=== PATIENT | male | born 1945 | race Caucasian/White ===

== ENCOUNTER → 2017-09-06 16:15 | Outpatient (CLI) | payer MEDICARE, BC, SELFPAY ==
--- NOTE | 2017-09-06 16:30 | XR_ITS ---
XR chest 2V HISTORY: ITS.REASON: CHEST PAIN AT REST ORDERING PHYSICIAN: Horacio Ferro MD PATIENT AGE: 72 years COMPARISON: 12/30/2014 FINDINGS: The cardiomediastinal silhouette and pulmonary vascularity are within normal limits. Surgical clips are present in the right apex. The lungs are clear of acute infiltrate. No lobar consolidation or collapse. Calcified granuloma is present in the left upper lobe. Degenerative changes thoracic spine IMPRESSION: Postsurgical changes right upper lobe, no acute finding
[2017-09-06 17:46] LABS: Creatine Kinase 439 U/L (39-308); Creatine Kinase MB 5.9 ng/ml (0.0-3.6); Troponin I < 0.02 ng/ml (0.00-0.06)
[2017-09-06 19:39] LABS: CKMB Relative Index 1.3 U/L (0-4.0)
== END ==
PROVIDERS: Visit Provider Family Medicine
DX: R07.9 Chest pain, unspecified (principal)
CPT/HCPCS: 36415; 71046; 82550; 82553; 84484

== ENCOUNTER → 2018-06-13 10:34 | Outpatient (CLI) | payer MEDICARE, BC, SELFPAY ==
[2018-06-13 11:15] LABS: Basophils % 0.4 % (0.1-2.0); Eosinophils # 0.3 K/mm3 (0.0-0.4); Eosinophils % 2.9 % (0.1-12.0); Hematocrit 24.9 % (42.0-52.0); Hemoglobin 8.1 g/dL (14.1-18.0); Lymphocytes # 1.9 K/mm3 (0.7-4.5); Lymphocytes % 19.2 % (10-50); Mean Corpuscular HGB Conc 32.7 g/dL (31.8-35.4); Mean Corpuscular Hemoglobin 31.8 pg (27.0-31.2); Mean Corpuscular Volume 97.5 fl (80-94); Mean Platelet Volume 7.5 fl (7.4-10.4); Monocytes # 0.5 K/mm3 (0.1-1.0); Monocytes % 4.9 % (1.7-9.3); Neutrophils # 7.1 K/mm3 (1.8-7.8); Neutrophils % 72.6 % (37.0-80.0); Platelet Count 416 K/mm3 (142-424); Red Blood Count 2.56 M/mm3 (4.60-6.20); Red Cell Distribution Width 15.4 % (11.5-17.5); White Blood Count 9.8 K/mm3 (4.8-10.8)
== END ==
PROVIDERS: Visit Provider Family Medicine
DX: D64.9 Anemia, unspecified (principal)
CPT/HCPCS: 36415; 85025

== ENCOUNTER 2018-06-14 08:49 | Outpatient (CLI) | payer MEDICARE, BC, SELFPAY ==
[2018-06-14] VITALS (18 sets, daily range): BP systolic 113–159; BP diastolic 46–71; PULSE 68–80; RESP 16–76; TEMP 36.1–36.6; O2SAT 10–100; BMI 31.8
[2018-06-14 09:40] LABS: Basophils % 0.4 % (0.1-2.0); Eosinophils # 0.3 K/mm3 (0.0-0.4); Eosinophils % 4.3 % (0.1-12.0); Lymphocytes # 1.4 K/mm3 (0.7-4.5); Lymphocytes % 23.2 % (10-50); Mean Corpuscular HGB Conc 32.9 g/dL (31.8-35.4); Mean Corpuscular Volume 97.3 fl (80-94); Mean Platelet Volume 7.3 fl (7.4-10.4); Monocytes # 0.3 K/mm3 (0.1-1.0); Monocytes % 4.9 % (1.7-9.3); Neutrophils # 4.1 K/mm3 (1.8-7.8); Neutrophils % 67.1 % (37.0-80.0); Platelet Count 383 K/mm3 (142-424); Red Blood Count 2.11 M/mm3 (4.60-6.20); Red Cell Distribution Width 15.5 % (11.5-17.5); White Blood Count 6.1 K/mm3 (4.8-10.8)
[2018-06-14 09:51] LABS: Hematocrit 20.5 % (42.0-52.0); Hemoglobin 6.8 g/dL (14.1-18.0)
[2018-06-14 17:37] LABS: Hematocrit 26.5 % (42.0-52.0)
[2018-06-14 17:40] LABS: Hemoglobin 9.1 g/dL (14.1-18.0)
== END 2018-06-14 17:25 | disposition home or self-care (01) ==
LOC: LAB 08:50 → INF 10:32
PROVIDERS: PCP Family Medicine; Visit Provider Nurse Practitioner Family
DX: K92.2 Gastrointestinal hemorrhage, unspecified (principal); D50.0 Iron deficiency anemia secondary to blood loss (chronic)
CPT/HCPCS: 36415; 36430; 85014; 85018; 85025; 86850; P9016

== ENCOUNTER 2018-06-20 09:55 | Outpatient (CLI) | payer MEDICARE, BC, SELFPAY ==
[2018-06-20 10:06] VITALS: BMI 30.9
[2018-06-20 11:19] LABS: Basophils % 0.5 % (0.1-2.0); Eosinophils # 0.2 K/mm3 (0.0-0.4); Eosinophils % 3.5 % (0.1-12.0); Hematocrit 31.9 % (42.0-52.0); Hemoglobin 10.5 g/dL (14.1-18.0); Lymphocytes # 1.7 K/mm3 (0.7-4.5); Lymphocytes % 24.7 % (10-50); Mean Corpuscular HGB Conc 32.9 g/dL (31.8-35.4); Mean Corpuscular Hemoglobin 30.6 pg (27.0-31.2); Mean Corpuscular Volume 93.1 fl (80-94); Mean Platelet Volume 7.1 fl (7.4-10.4); Monocytes # 0.4 K/mm3 (0.1-1.0); Monocytes % 5.7 % (1.7-9.3); Neutrophils # 4.4 K/mm3 (1.8-7.8); Neutrophils % 65.7 % (37.0-80.0); Platelet Count 458 K/mm3 (142-424); Red Blood Count 3.43 M/mm3 (4.60-6.20); Red Cell Distribution Width 14.2 % (11.5-17.5); White Blood Count 6.7 K/mm3 (4.8-10.8)
[2018-06-20 11:20] VITALS: BP 142/67; PULSE 59; RESP 18; O2SAT 99
[2018-06-20 11:45] VITALS: BP 138/74; PULSE 61; RESP 18
== END 2018-06-20 11:55 | disposition home or self-care (01) ==
LOC: INF 09:58
PROVIDERS: Family Medicine; Visit Provider Internal Medicine Gastroenterology
DX: D64.9 Anemia, unspecified (principal); D50.9 Iron deficiency anemia, unspecified; T45.4X5A Adverse effect of iron and its compounds, initial encounter
CPT/HCPCS: 85025; 96365; J1439

== ENCOUNTER 2018-06-27 09:50 | Outpatient (CLI) | payer MEDICARE, BC, SELFPAY ==
[2018-06-27 10:09] VITALS: BMI 30.9
[2018-06-27 11:00] VITALS: BP 117/65; PULSE 88; RESP 18; TEMP 36.6; O2SAT 96
[2018-06-27 11:13] LABS: Basophils % 0.8 % (0.1-2.0); Eosinophils # 0.2 K/mm3 (0.0-0.4); Eosinophils % 3.3 % (0.1-12.0); Hematocrit 34.5 % (42.0-52.0); Hemoglobin 11.4 g/dL (14.1-18.0); Lymphocytes # 1.4 K/mm3 (0.7-4.5); Lymphocytes % 24.3 % (10-50); Mean Corpuscular Hemoglobin 30.9 pg (27.0-31.2); Mean Corpuscular Volume 93.8 fl (80-94); Monocytes # 0.3 K/mm3 (0.1-1.0); Monocytes % 4.4 % (1.7-9.3); Neutrophils % 67.3 % (37.0-80.0); Platelet Count 398 K/mm3 (142-424); Red Blood Count 3.68 M/mm3 (4.60-6.20); Red Cell Distribution Width 15.3 % (11.5-17.5); White Blood Count 5.9 K/mm3 (4.8-10.8)
[2018-06-27 11:40] VITALS: BP 149/66; PULSE 66; RESP 18; TEMP 36.6; O2SAT 99
== END 2018-06-27 11:45 | disposition hospice, home (50) ==
LOC: INF 09:58
PROVIDERS: Family Medicine; Visit Provider Internal Medicine Gastroenterology
DX: D50.0 Iron deficiency anemia secondary to blood loss (chronic) (principal); K92.2 Gastrointestinal hemorrhage, unspecified
CPT/HCPCS: 85025; 96365; J1439

== ENCOUNTER 2024-07-01 08:48 | Outpatient (CLI) | payer MEDICARE, BC, SELFPAY ==
--- NOTE | 2024-07-01 08:52 | US_ITS ---
FINAL REPORT TECHNIQUE: Sonographic images of the abdomen were obtained in all four quadrants. CLINICAL HISTORY: ABNORMAL LIVER FUNCTIONS COMPARISON: None FINDINGS: LIVER: There is fatty infiltration of the liver present. The liver is mildly enlarged. No focal hepatic lesion or intrahepatic biliary dilatation. The portal vein has normal directional flow. GALLBLADDER: The gallbladder is surgically absent. The common duct measures 6 mm. This is within normal limits post cholecystectomy. PANCREAS: The portions of the pancreas visualized are unremarkable. RIGHT KIDNEY: 10.8 cm. There is an echogenic focus in the lower pole of the right kidney, that likely represents a nonobstructing stone. LEFT KIDNEY: 11.9 cm. No hydronephrosis, mass or stone. SPLEEN: 14.4 cm, consistent with splenomegaly. No focal splenic lesion. AORTA/IVC: No abdominal aortic aneurysm. Visualized IVC within normal limits. OTHER: No ascites. IMPRESSION: Hepatosplenomegaly is present, with fatty infiltration of the liver. Gallbladder is surgically absent. Echogenic focus in the lower pole of the right kidney, that likely represents a nonobstructing renal stone. Reviewed, Interpreted and Dictated by Molly Cancino MD Transcribed by Angela Perea Authenticated and . [facility]
--- OUTSIDE RECORDS SUMMARY | 2024-07-01 08:53 | XMS_ITS ---
Author Organization Unknown Vital Signs BpStanding BpSitting BpSupine Date Temperature HeartRate Weight Hei ght Spo2 Respiration Bmi HeadCircumference FieldCount TimeRecorded NeckCircumferen ce WaistCircumference Pulse 138/68 06/07 00:00 :00 98.0 74 223,0 5,11 98 31.1 7 06/07/2024 13:15:00 140/78 12/19 00:00 :00 98.6 72 214,0 5,11 94 29.8 4 7 06/07/2024 08:30:00 140/80 09/19 00:00 :00 98.6 211,0 5,11 29.4 3 5 06/07/2024 08:30:00 148/80 06/26 00:00 :00 98.6 205,0 5,11 28.5 9 5 06/07/2024 08:45:00
== END 2024-07-01 23:59 | disposition home or self-care (01) ==
PROVIDERS: PCP Family Medicine; Visit Provider Nurse Practitioner
DX: K76.89 Other specified diseases of liver (principal)
CPT/HCPCS: 76700

== ENCOUNTER 2024-07-23 15:10 | Emergency (ER) | payer MEDICARE, BC, SELFPAY ==
[2024-07-23] VITALS (9 sets, daily range): BP systolic 138–159; BP diastolic 62–75; PULSE 90–102; RESP 18–28; TEMP 36.8–38.6; O2SAT 90–98; BMI 32.6
--- NOTE | 2024-07-23 15:06 | ECG_ITS ---
APPROVED REPORT Exam: Resting ECG HR:101 bpm ECG Measurements Heart Rate 101 AXES RI 209 P 58 QRSd 168 QRS 64 QT 380 T -9 QTc 438 Conclusion SINUS TACHYCARDIA RIGHT BUNDLE BRANCH BLOCK [120+ ms QRS DURATION, UPRIGHT V1, 40+ ms S IN I/aVL/V4/V5/V6] ST DEPRESSION, CONSIDER SUBENDOCARDIAL INJURY [0.1+ mV ST DEPRESSION] ABNORMAL ECG Electronically signed by : ENRIQUETA HUDDLESTON, 07/23/2024 20:51:36
--- NOTE | 2024-07-23 15:22 | CT_ITS ---
PROCEDURE INFORMATION: Exam: CTA Chest With Contrast Exam date and time: 07/23/2024 4:03 PM Age: 79 years old Clinical indication: Sternal or substernal pain; Additional info: Severe cp TECHNIQUE: Imaging protocol: Computed tomographic angiography of the chest with contrast. Exam focused on the arteries. 3D rendering (Not supervised by radiologist): MIP and/or 3D reconstructed images were created by the technologist. Radiation optimization: All CT scans at this facility use at least one of these dose optimization techniques: automated exposure control; mA and/or kV adjustment per patient size (includes targeted exams where dose is matched to clinical indication); or iterative reconstruction. Contrast material: ISOVUE 370; Contrast volume: 80 ml; Contrast route: INTRAVENOUS (IV); COMPARISON: CT ANGIO CHEST 07/23/2024 4:03 PM FINDINGS: Pulmonary arteries: No definite pulmonary emboli, with the caveat that the segmental and subsegmental branches are partially obscured by motion and suboptimal contrast bolus. Aorta: Mild calcifications in the aorta without aneurysms. Lungs: Mild upper lobe dominant paraseptal emphysema. No consolidations. No lung masses. Mild dependent atelectasis. Pleural spaces: Unremarkable. No pneumothorax. No pleural effusion. Heart: Mild cardiomegaly. Coronary arteries: Moderate calcification in the LAD. Lymph nodes: Unremarkable. No enlarged lymph nodes. Diaphragm: Moderate hiatal hernia. Bones/joints: Moderate to severe degenerative changes of the spine without acute fracture or dislocation. Soft tissues: Unremarkable. IMPRESSION: 1. No definite pulmonary emboli, with the caveat that the segmental and subsegmental branches are partially obscured by motion and suboptimal contrast bolus. 2. No other acute findings.
--- NOTE | 2024-07-23 15:25 | HMH.EDCP ---
Discharge Plan Disposition Chief Complaint: Chest Pain Prescriptions Prescriptions: No Action potassium chloride [Klor-Con 10] 10 MEQ Tablet.Er 10 meq PO BID amlodipine 5 MG Tablet 5 mg PO DAILY alprazolam 0.5 MG Tablet 0.5 mg PO QIDP PRN (Reason: Anxiety) metoprolol tartrate 50 MG Tablet 50 mg PO BID cholecalciferol (vitamin D3) [Vitamin D3] 1,000 UNIT Capsule 2,000 unit PO DAILY hydrochlorothiazide 12.5 MG Tablet 12.5 mg PO DAILY vitamins A,C,O-fsyi-grvylg [PreserVision AREDS] 1 EACH Capsule 1 ea PO DAILY PRN (Reason: supplement) pantoprazole 40 mg tablet,delayed release (DR/EC) 40 mg PO DAILY Referrals Follow up/Referrals: Provider,Referral, MD [Primary Care Provider] - See instructions Activity Restrictions/Add. Instructions Additional Instructions/Restrictions: As discussed today you have chest pain that is concerning to me, your sugar is elevated, your potassium is a little bit low. 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 We did talk about it and you do not wish to pursue any of these and that is your right to make that decision. However if you change your mind and want to have any of these manage do not hesitate to return the emergency department at any time. Otherwise if you want to follow-up with your family doctor to keep an eye on things I would encourage you to do so soon as you are able. Clinical Impressions Clinical Impression: Unstable angina, Acute hypokalemia, Hyperglycemia, Transaminitis Print Language Print Language: Andorran Discharge ED Provider: Gerber Faye HPI General Chief Complaint: Chest Pain Stated Complaint: CP Time Seen by Provider: 07/23/24 15:14 Mode of Arrival: EMS Source of Information: Patient and EMS Description of Symptoms (Recalled from ER Triage Doc. by RN): pt started having CP today at home with one episode of nausea and vomiting, pt denies soa /dizziness, ems gave 324 mg ASA History of Present Illness HPI narrative: Patient is a 79-year-old male with past medical history of hypertension who presents emergency department for evaluation of chest pain and fever. Onset was acute, occurring since early this afternoon, substernal, paroxysmal. He has never had chest pain like this before has no significant already at history no stents. 1 episode of nonbloody nonbilious vomiting. No abdominal pain. He has chronic constipation which is at his baseline, increased urinary frequency chronically. No trauma. No cough or shortness of breath. No other acute complaints at this time. Related Data Home Medications ?Medication ?Instructions ?Recorded ?Confirmed alprazolam 0.5 mg tablet 0.5 mg PO QIDP PRN Anxiety 06/14/18 06/20/18 amlodipine 5 mg tablet 5 mg PO DAILY blood pressure 06/14/18 06/20/18 cholecalciferol (vitamin D3) 25 2,000 unit PO DAILY Supplement 06/14/18 06/20/18 mcg (1,000 unit) capsule (Vitamin D3) hydrochlorothiazide 12.5 mg tablet 12.5 mg PO DAILY blood 06/14/18 06/20/18 pressure/fluid metoprolol tartrate 50 mg tablet 50 mg PO BID blood pressure 06/14/18 06/20/18 potassium chloride 10 mEq 10 meq PO BID Supplement 06/14/18 06/20/18 tablet,extended release (Klor-Con) vitamins A,C,D-ozru-cuypjg 4,296 1 ea PO DAILY PRN supplement 06/14/18 06/20/18 mcg-226 mg-90 mg capsule (PreserVision AREDS) pantoprazole 40 mg tablet,delayed 40 mg PO DAILY 07/23/24 07/23/24 release Allergies Allergy/AdvReac Type Severity Reaction Status Date / Time No Known Allergies Allergy Verified 06/14/18 11:38 [facility] Disclaimer: The information contained in this section may have been updated after the patient was seen, as this information can be updated by other users. Social History Smoking Status: Never smoker alcohol intake: never current occupational status: other Travel in the last 8 weeks?: None caffeine: Yes ROS Obtained: Yes Systems reviewed as appropriate & no additional complaints except as documented Physical Exam General General appearance: alert and in no apparent distress Head Head exam: atraumatic and normocephalic Eye Eye exam: Present PERRL and EOMI ENT ENT exam: Present mucous membranes moist Neck Neck exam: Present normal inspection Chest Chest inspection: Present normal inspection and symmetric chest wall rise Respiratory Respiratory exam: Present normal lung sounds bilaterally; Absent respiratory distress Cardiovascular Cardiovascular exam: Present normal rhythm and tachycardia Abdominal Exam Abdominal exam: Present soft; Absent tenderness Extremities Exam Extremities exam: Present normal inspection Neurological Exam Neurological exam: Present alert and CN II-XII intact; Absent motor sensory deficit Psychiatric Psychiatric exam: Present normal affect Skin Skin exam: Present warm and dry HEART Score HEART Score HEART Score assessment performed?: Yes History (anamnesis): Moderately suspicious ECG: Non-specific disturbance Age: >65 years Risk factors: No known risk factors Troponin: </= normal limit HEART Score: 4 Critical Care Critical Care Time Critical Care Time: No Medical Decision Making Conrad Inquiry Pt receiving controlled substance: No Vital Signs Vital Signs: 07/23/24 15:16 07/23/24 15:25 07/23/24 15:30 Temperature 101.5 F H Temperature Source Oral Pulse Rate 102 H Pulse Rate [Left Radial] 102 H Respiratory Rate 20 28 H Blood Pressure 151/75 H Blood Pressure [Right Arm] 140/71 Blood Pressure Mean [Right Arm] 94 02 Sat by Pulse Oximetry 95 Oxygen Delivery Method Room Air 07/23/24 16:30 07/23/24 17:00 07/23/24 17:30 Temperature Temperature Source Pulse Rate 99 H 98 H 95 H Pulse Rate [Left Radial] Respiratory Rate 22 27 H 23 Blood Pressure 156/71 H 159/66 H 156/62 H Blood Pressure [Right Arm] Blood Pressure Mean [Right Arm] 02 Sat by Pulse Oximetry 95 90 L 92 L Oxygen Delivery Method 07/23/24 18:00 07/23/24 18:30 Temperature Temperature Source Pulse Rate 95 H 92 H Pulse Rate [Left Radial] Respiratory Rate 18 22 Blood Pressure 138/62 145/64 H Blood Pressure [Right Arm] Blood Pressure Mean [Right Arm] 02 Sat by Pulse Oximetry 93 L 92 L Oxygen Delivery Method Lab Data Labs: Lab Results 07/23/24 15:10: WBC 10.4, RBC 4.59 L, Hgb 14.5, Hct 42.1, MCV 91.7, MCH 31.6 H, MCHC 34.4, RDW 13.4, Plt Count 211, MPV 10.9 H, Neut % (Auto) 86.8 H, Lymph % (Auto) 5.6 L, [place] % (Auto) 6.4, Eos % (Auto) 0.4, Baso % (Auto) 0.3, Neut # (Auto) 9.0 H, Lymph # (Auto) 0.6 L, [place] # (Auto) 0.7, Eos # (Auto) 0.0, Baso # (Auto) 0.0, Sodium 137, Potassium 3.0 L, Chloride 103, Carbon Dioxide 25, Anion Gap 12.0, BUN 17, Creatinine 1.30 H, Estimated Creat Clear 61, Estimated GFR 53 L, Est GFR ( Amer) 64, Glucose 258 H, Lactate 3.0 H, Calcium 9.4, Total Bilirubin 1.8 H, AST 150 H, ALT 183 H, Alkaline Phosphatase 97, Troponin I 0.02, Total Protein 7.5, Albumin 4.6, Globulin 2.9, Albumin/Globulin Ratio 1.6, Lipase 374 H, SARS-CoV-2 (PCR) Not detected, Influenza A Untype (PCR) Not detected, Influenza Type B (PCR) Not detected 07/23/24 16:18: Urine Color Dark yellow, Urine Appearance Clear, Urine pH 6.5, Ur Specific [place] 1.010, Urine Protein 1+ A, Urine Glucose (UA) Negative, Urine Ketones Negative, Urine Blood Negative, Urine Nitrate Negative, Urine Bilirubin Negative, Urine Urobilinogen 0.2, Ur Leukocyte Esterase Negative, Urine RBC None, Urine WBC 3-5, Ur Squamous Epith Cells None, Urine Bacteria Trace, Urine Mucus Trace 07/23/24 15:10 07/23/24 15:10 Response Orders (Tests/Meds): ED MEDICATIONS Discontinued Medications Generic Name Dose Route Start Last Admin Trade Name Freq PRN Reason Stop Dose Admin Acetaminophen 1,000 mg 07/23/24 15:22 07/23/24 15:34 Acetaminophen 500mg Tab PO 07/23/24 15:23 1,000 mg ONCE ONE Administration Aspirin 324 mg 07/23/24 15:22 07/23/24 15:27 Aspirin 81mg Chewable Tablet PO 07/23/24 15:23 Not Given ONCE ONE Belladonna Alkaloids 60 ml 07/23/24 15:22 07/23/24 15:34 Belladonna Alkaloids 60 Ml Ml PO 07/23/24 15:23 60 ml ONCE ONE Administration Lactated Ringer's 1,000 mls @ 999 mls/hr 07/23/24 16:44 07/23/24 16:58 Lactated Ringer's 1000 Ml Bag IV 07/23/24 17:44 999 mls/hr .Q1H1M ONE Administration Iopamidol 80 ml 07/23/24 16:05 07/23/24 16:06 Iopamidol-370 (76%);100ml Bottle IV 07/23/24 16:06 80 ml ONCE ONE Administration Ondansetron HCl 4 mg 07/23/24 15:26 07/23/24 15:34 Ondansetron 4mg/2ml Vial IV 07/23/24 15:27 4 mg ONCE ONE Administration Potassium Chloride 40 meq 07/23/24 16:43 07/23/24 16:58 Potassium Chloride 20meq Tab PO 07/23/24 16:44 40 meq ONCE ONE Administration Sodium Chloride 10 ml 07/23/24 16:05 07/23/24 16:06 Sodium Chloride 0.9% 10ml Syr (Rad Only) IV 07/23/24 16:06 10 ml ONCE ONE Administration Sodium Chloride 50 ml 07/23/24 16:05 07/23/24 16:06 0.9 % Sodium Chloride 50 Ml Vial IV 07/23/24 16:06 50 ml ONCE ONE Administration ORDERS Category Date Time Status CT abdomen pelvis w con Stat Cat Scan 07/23/24 15:[address] angio chest - dissection Stat Cat Scan 07/23/24 15:22 Completed CBC w/Auto Diff [Complete Blood Count Auto Diff] Stat Lab 07/23/24 15:10 Completed CMP [Comprehensive Metabolic Panel] Stat Lab 07/23/24 15:10 Completed Lactic Acid Stat Lab 07/23/24 15:10 Completed Lipase Stat Lab 07/23/24 15:10 Completed Rapid PCR Covid and Flu A/B Stat Lab 07/23/24 15:10 Completed Trop I [Troponin I] Stat Lab 07/23/24 15:10 Completed Troponin I Q3H Lab 07/23/24 18:16 Received Troponin I Q3H Lab 07/23/24 21:30 Ordered UA [Urinalysis and Microscopic] Stat Lab 07/23/24 16:18 Completed Blood Culture Stat Micro 07/23/24 15:10 Received ECG Data Tracing #1: ECG Narrative: Independently interpreted by me rate is 101, rhythm is regular, axis is normal, no ST elevation in anatomical contiguous leads, incomplete right bundle branch block. QTc 438. MDM Narrative Medical Decision Narrative: In summary patient is a 79-year-old male with past medical history described by presents emergency department for evaluation of chest pain. Patient is hemodynamically stable nontoxic-appearing upon arrival, febrile temperature 101.5 ?F slight tachycardia. He does not have an overt cough to suggest pneumonia he does have some increased urinary frequency. Differential diagnosis includes ACS, pulmonary embolism, urinary tract infection, among others. No IV drug use to suggest high risk for endocarditis. Is overall well-appearing otherwise. Initial workup will be conducted with hematologic labs, CT angio chest, EKG, serial troponins. Initial inventions include aspirin, Tylenol, Zofran, GI cocktail. Initial workup reviewed by me, no significant leukocytosis, mild hypokalemia which will be repleted there is mildly elevated creatinine without FRAN per rifle criteria, lactate is 3 will resuscitate with crystalloid bolus, mild transaminitis and elevated bilirubin, mild elevated lipase. Urinalysis interpreted by me and not consistent with infection. CT abdomen pelvis will be added on. Upon further discussion patient was recently diagnosed with Vandana-Valero virus which can explain his mild elevated transaminases and bilirubin. Blood cultures will be drawn. Full sepsis bolus was considered but patient appears largely euvolemic therefore we will start with 1 L for now. Broad-spectrum antibiotics will be deferred. CTA chest no definitive pulmonary embolism, CT abdomen pelvis there is an enlarged 20 cm fatty liver with lobulated contour consistent with cirrhosis with exophytic lobulation of the left lobe of the liver for which outpatient MRI with and without is recommended, mild prostate enlargement with nodules for which outpatient follow-up is also recommended, no evidence of pancreatitis by CT. Specifically no ductal dilatation and no findings consistent with cholecystitis. Upon repeat evaluation patient is resting in bed. Extensive discussion was had at bedside, patient has new diagnosis of diabetes, multiple imaging abnormalities on his liver and prostate can likely be managed outpatient however given his chest pain he is very high risk and would benefit from inpatient admission and cardiology evaluation. 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 He understands that his heart and elevated sugar may be can entirely unrelated and fixable however he does not wish to pursue management of either of these at this time and wishes to go home. Patient is able to understand, appreciate, reason through his choice to make an express choice therefore having capacity and in no uncertain terms he knows that this may kill him. He was instructed that he can return to the emergency department anytime he chooses if he wishes to continue to work this up and otherwise he will follow-up with his family doctor.
[2024-07-23 15:30] LABS: Coronavirus 19, PCR Not Detected (NotDetected); Influenza A, PCR Not Detected (NotDetected); Influenza B, PCR Not Detected (NotDetected)
[2024-07-23] MEDS: BELLADONNA ALKALOIDS 60 ML ML PO (15:34)
[2024-07-23] MEDS: ONDANSETRON 4MG/2ML VIAL 4 MG IV (15:34)
[2024-07-23] MEDS: ACETAMINOPHEN 500MG TAB 1000 MG PO (15:34)
[2024-07-23 15:38] LABS: Alanine Aminotransferase 183 U/L (12-78); Albumin Level 4.6 g/dl (3.5-5.0); Albumin/Globulin Ratio 1.6 (1.1-1.8); Alkaline Phosphatase 97 U/L (38-126); Aspartate Amino Transferase 150 U/L (17-59); Basophils % 0.3 % (0.1-2.0); Bilirubin,Total 1.8 mg/dl (0.2-1.3); Blood Urea Nitrogen 17 mg/dl (9-20); Calcium 9.4 mg/dl (8.4-10.2); Carbon Dioxide 25 mmol/L (22.0-30.0); Chloride 103 mmol/L (98-107); Creatinine Clearance Estimated 61 mL/min (50-200); Eosinophils % 0.4 % (0.1-12.0); Estimated Glomerular Filt Rate 53 ml/min (>60); GFR (African American) 64 ML/MIN (>60); Globulin 2.9 g/dL (1.3-3.2); Glucose 258 mg/dl (74-100); Hematocrit 42.1 % (42.0-52.0); Hemoglobin 14.5 g/dL (14.1-18.0); Immature Granulocytes # 0.05 10^3uL; Immature Granulocytes % 0.5 %; Lipase 374 U/L (23-300); Lymphocytes # 0.6 K/mm3 (0.7-4.5); Lymphocytes % 5.6 % (10-50); Mean Corpuscular HGB Conc 34.4 g/dL (31.8-35.4); Mean Corpuscular Hemoglobin 31.6 pg (27.0-31.2); Mean Corpuscular Volume 91.7 fl (80-94); Mean Platelet Volume 10.9 fl (7.4-10.4); Monocytes # 0.7 K/mm3 (0.1-1.0); Monocytes % 6.4 % (1.7-9.3); Neutrophils % 86.8 % (37.0-80.0); Nucleated Red Blood Cells # 0 10^3/uL; Nucleated Red Blood Cells % 0 %; Platelet Count 211 K/mm3 (142-424); Red Blood Count 4.59 M/mm3 (4.60-6.20); Red Cell Distribution Width 13.4 % (11.5-17.5); Red Cell Distribution Width-SD 44.9 fL; Sodium 137 mmol/L (136-145); Total Protein,Serum 7.5 g/dl (6.3-8.2); White Blood Count 10.4 K/mm3 (4.8-10.8)
--- OUTSIDE RECORDS SUMMARY | 2024-07-23 15:38 | XMS_ITS ---
Laboratory report Created on: July 11, 2024 MAURA OLIVA : 1945 Sex: Male Author Name JAMES PEREIRA Organization Unknown PROBLEMS Problems List Code Description K76.0 RESULTS Laboratory Orders Date Order Code Test 2024-07-02 523503 PRITESH-TORRES VIR US PCR 2024-07-02 [id number] CYTOMEGALOVIRUS (CMV) AB, IGG 2024-07-02 [id number] CYTOMEGALOVIRUS (CMV) AB, IGM 2024-07-02 [id number] HAV, HBV, HCV 2024-07-02 [id number] ANTINUCLEAR AB 9 BY MULTIPLEX Laboratory Results Date LOINC Test Value Unit Reference Range Interpre tation 2024-07-02 5005-4 PRITESH-TORRES VIR US REAL TIME P NEGATIVE A 2024-07-02 5124-3 CYTOMEGALOVIRUS (CMV) AB, IGG <0.60 U/ML 0.00-0.59 2024-07-02 5126-8 CYTOMEGALOVIRUS (CMV) AB, IGM <30.0 AU/ML 0.0-29.9 2024-07-02 55842-1 HEP A AB, TOTAL N NEGATIVE 2024-07-02 5196-1 HBSAG SCREEN N NEGATIVE 2024-07-02 03983-2 HEP B SURFACE AB, QUAL NR 2024-07-02 54991-4 HEP B CORE AB, TOT N NEGATIVE 2024-07-02 01629-3 RFX TO HBC IGM RFNOTM 2024-07-02 27392-6 HCV AB NR NON REACTIVE 2024-07-02 5130-0 ANTI-DNA (DS) AB QN 1 IU/ML 0-9 2024-07-02 75155-4 PSYCHOLOGIST DEVELOPMENTAL ANTIBODIES <0.2 AI 0.0-0.9 2024-07-02 49829-5 GOLDEN ANTIBODIES <0.2 AI 0.0-0.9 2024-07-02 48736-1 ANTISCLERODERMA- 70 ANTIBODIES <0.2 AI 0.0-0.9 2024-07-02 74034-0 SJOGREN'S ANTI-SS-A .5 AI 0.0-0.9 2024-07-02 13671-1 SJOGREN'S ANTI-SS-B 2.5 AI 0.0-0.9 H 2024-07-02 58346-5 ANTICHROMATIN ANTIBODIES <0.2 AI 0.0-0.9 2024-07-02 34286-8 ANTI-HEATHER-1 <0.2 AI 0.0-0.9 2024-07-02 42947-7 ANTI-CENTROMERE B ANTIBODIES <0.2 AI 0.0-0.9
[2024-07-23 15:49] LABS: Troponin I 0.02 ng/ml (0.00-0.034)
--- NOTE | 2024-07-23 15:50 | CT_ITS ---
PROCEDURE INFORMATION: Exam: CT Abdomen And Pelvis With Contrast Exam date and time: 07/23/2024 4:03 PM Age: 79 years old Clinical indication: Abnormal findings; Abnormal lab test; Elevated lipase; Additional info: Low sternal pain, elevated lipase and liver marker TECHNIQUE: Imaging protocol: Computed tomography of the abdomen and pelvis with contrast. Radiation optimization: All CT scans at this facility use at least one of these dose optimization techniques: automated exposure control; mA and/or kV adjustment per patient size (includes targeted exams where dose is matched to clinical indication); or iterative reconstruction. Contrast material: ISOVUE; Contrast volume: 75 ml; Contrast route: IV; COMPARISON: US ABDOMEN COMPLETE 07/01/2024 9:09 AM FINDINGS: Diaphragm: Small hiatal hernia. Liver: 20 cm enlarged and fatty liver with lobulated contour, consistent with cirrhosis. Gallbladder and biliary ducts: Normal. No calcified stones. No ductal dilation. Pancreas: Normal. No ductal dilation. Spleen: 15 cm splenomegaly with scattered benign clacified granulomas. No lesions. Adrenal glands: Normal. No mass. Kidneys and ureters: Normal. No hydronephrosis. Stomach and bowel: 3 cm duodenal diverticulum. Appendix: No evidence of appendicitis. Intraperitoneal space: See Vasculature finding. No free fluid. Vasculature: There is moderate atherosclerosis. Portal veins are patent. Varices are present in the perisplenic space, periesophageal space, pelvis, and omentum. Lymph nodes: Unremarkable. No enlarged lymph nodes. Urinary bladder: Unremarkable as visualized. Reproductive: Moderate prostatomegaly with prostatic nodules indenting into the bladder wall. Bones/joints: Moderate bone dimenralization. Moderate degenerative changes of the spine. No fracture. Soft tissues: Small fat containing right inguinal hernia. IMPRESSION: 1. 20 cm enlarged and fatty liver with lobulated contour, consistent with cirrhosis. There is a more pronounced exophytic lobulation in the left liver lobe, in which an occult lesion is in the DDX. Follow up liver MRI without and with contrast is recommended in a non emergent setting. No focal liver lesions otherwise. 2. Moderate prostatomegaly with prostatic nodules indenting into the bladder wall. Occult prostatic neoplasm is in the differential, and correlation with PSA levels is recommended. 3. Early sequelae of portal hypertension. 4. No pancreatitis by CT.
[2024-07-23] MEDS: 0.9 % SODIUM CHLORIDE 50 ML VIAL IV (16:06)
[2024-07-23] MEDS: IOPAMIDOL-370 (76%);100ML BOTTLE 80 ML IV (16:06)
[2024-07-23] MEDS: SODIUM CHLORIDE 0.9% 10ML SYR (RAD ONLY) 10 ML IV (16:06)
[2024-07-23 16:22] LABS: Microscopic, Urine URINE MICROSCOPIC (MICROSCOPIC)
[2024-07-23 16:24] LABS: Appearance,Urine CLEAR (Clear); Bilirubin,Urine Negative (Negative); Blood, Urine Negative (Negative); Glucose,Urine (UA) Negative (Negative); Ketones,Urine Negative (Negative); Leukocyte Esterase,Urine Negative (Negative); Nitrate,Urine Negative (Negative); PH,Urine 6.5 (5.0-8.5); Protein,Urine 1+ (Negative); Urobilinogen,Urine 0.2 EU/dl (0.2)
[2024-07-23 16:26] LABS: Color,Urine Dark Yellow (Yellow)
[2024-07-23 16:46] LABS: Bacteria,Urine Trace /lpf
[2024-07-23 16:47] LABS: Mucus,Urine Trace /lpf
[2024-07-23] MEDS: POTASSIUM CHLORIDE 20MEQ TAB 40 MEQ PO (16:58)
[2024-07-23] MEDS: LACTATED RINGERS 1000ML 1,000 ML 999 ML IV (16:58)
[2024-07-23 18:52] LABS: Troponin I 0.04 ng/ml (0.00-0.034)
[2024-07-23 20:20] LABS: Reflex Lactic Add Lactic Reflex
== END 2024-07-23 19:06 | disposition home or self-care (01) ==
PROVIDERS: Emergency Provider Emergency Medicine
DX: I20.0 Unstable angina (principal); R07.89 Other chest pain; E87.6 Hypokalemia; R00.0 Tachycardia, unspecified; R74.01 Elevation of levels of liver transaminase levels; I45.10 Unspecified right bundle-branch block; R93.2 Abnormal findings on diagnostic imaging of liver and biliary tract; R11.2 Nausea with vomiting, unspecified; R73.9 Hyperglycemia, unspecified; I10 Essential (primary) hypertension
CPT/HCPCS: 71275; 74177; 80053; 81001; 83605; 83690; 84484; 85025; 87040; 87636; 93005; 96361; 96374; 99285; J2405; J7120; Q9967

== ENCOUNTER 2024-08-22 16:14 | Outpatient (CLI) | payer MEDICARE, BC, SELFPAY ==
--- OUTSIDE RECORDS SUMMARY | 2024-06-28 08:10 | XMS_ITS | Encounter Summary ---
Author Organization Healthcare Address [address] [place] [address] Care Team Providers Care Red Cap Name Role Phone Torsten Ferro MD Primary Care Provider [phone] Blossom Méndez UTILIZATION MANAGER Unavailable [phone] Encounter Details Date Type Department Care Team (Late Contact Info) Description 06/28/2024 8:10 AM EDT Ancillary Procedure [facility] [address] [place] [phone] Social History Tobacco Use Types Packs/Day Years Used Date Smoking Tobacco: Former Cigarettes 1 20 0 03/13/1959 - 03/13/1979 Passive Smoke Exposure: Past Smokeless Tobacco: Never PHQ-2 Answer Date Recorded Patient Health Questionnaire-2 Score 0 08/02/2021 Sex and Gender Information Value Date Recorded Sex Assigned at Not on file Legal Sex Male 7:35 PM EDT Gender Identity Not on file Sexual Orientation Not on file documented as of this encounter Plan of Treatment Upcoming Encounters Date Type Department Care Team (Late Contact Info) Description 09/05/2024 1:30 PM EDT Office Visit [facility] Multidisciplinary Oncology Clinic [address] [place] [address] Blossom Méndez, UTILIZATION MANAGER 800 [facility] [address] [place] [address] 09/17/2024 3:00 PM EDT Office Visit [facility] [address] [place] [phone] Diego Sánchez MD 110 [facility] [address] [place] [phone] 01/08/2025 9:30 AM EDT Office Visit [facility] [address] [place] [phone] Allyssa Carrillo MD 110 [facility] [address] [place] [phone] documented as of this encounter Procedures Procedure Name Priority Date/Time Associated Diagnosis Comments OCT, RETINA - OU - BOTH EYES Routine 06/28/2024 9:50 AM EDT 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 documented in this encounter Results * OCT, Retina - OU - Both Eyes (06/28/2024 9:50 AM EDT) Anatomical Region Laterality Modality Head Optical [facility]ren[facility] e Tomography Narrative 06/28/2024 9:50 AM EDT Right Eye Quality was good. Progression has been stable. Left Eye Quality was good. Progression has been stable. Notes Right eye (OD) no subretinal fluid (SRF), atrophy Left eye (OS) no subretinal fluid (SRF), stable PED Allyssa Carrillo MD OPHTH TOMOGRAPHY Final Result documented in this encounter Visit Diagnoses Not on filedocumented in this encounter Additional Health Concerns Assessment Noted Time A fall risk assessment has been complete d for the patient 06/28/2024 9:23 AM EDT A Body Mass Index follow-up plan has been documented for the patient 06/28/2024 10:11 AM EDT documented as of this encounter Care Teams Red Cap Relationship Specialty Start Date End Date Torsten Ferro MD [address] [place] [address] #1 #1 BOB Steele [id number] PCP - General 07/24/20 Blossom Méndez APRN 800 [facility] [address] [place] [address] Nurse Practitioner Internal Medicine 12/16/20 documented as of this encounter
--- OUTSIDE RECORDS SUMMARY | 2024-06-28 09:30 | XMS_ITS | Encounter Summary ---
Author Organization [facility] Address [address] [place] [address] Care Team Providers Care Cardiopulmonary Technologist Chief Name Role Phone Torsten Ferro MD Primary Care Provider [phone] Blossom Méndez JV BASEBALL COACH Unavailable [phone] Reason for Visit * Reason Comments Follow-up Encounter Details Date Type Department Care Team (Latest Contact Info) Description 06/28/2024 9:30 AM EDT Office Visit [facility] [address] [place] [address] Allyssa Carrillo MD [address] [phone] 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 (Primary Dx); Intermediate stage nonexudative age-related macular degeneration of left eye; Retinal telangiectasia of both eyes; Entropion of right lower eyelid Social History Tobacco Use Types Packs/Day Years [...] on file documented as of this encounter Miscellaneous Notes * Progress Notes - Allyssa Carrillo MD - 06/28/2024 9:30 AM EDT Retina Clinic Note CHIEF COMPLAINT Patient presents for Follow-up HISTORY OF PRESENT ILLNESS: Caio Krishna is a 78 y.o. male who presents to the clinic today for: HPI 78 year old male patient in clinic for a yearly follow up. Patient with Retinal telangiectasia of both eyes, Blurred vision, 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, Intermediate stage nonexudative age-related macular degeneration of left eye, Age-related nuclear cataract of both eyes. Patient says vision is good, patient reports not having any blurry vision. Patient states that his right eye (OD) has felt funny sometimes. Patient denies any flashes or floaters. Patient uses BioTrue Lubricating drops, PRN. Last edited by Gomez Martínez on 06/28/2024 9:22 AM. REVIEW OF SYSTEMS: ROS Positive for: Eyes Negative for: Constitutional, Gastrointestinal, Neurological, Skin, Genitourinary, Musculoskeletal,HENT, Endocrine, Cardiovascular, Respiratory, Psychiatric, Allergic/Imm, Heme/Lymph Last edited by Gomez Martínze on 06/28/2024 9:16 AM. Negative except for ROS Positive for: Eyes Negative for: Constitutional, Gastrointestinal, Neurological, Skin, Genitourinary, Musculoskeletal,HENT, Endocrine, Cardiovascular, Respiratory, Psychiatric, Allergic/Imm, Heme/Lymph Last edited by Gomez Martínez on 06/28/2024 9:16 AM. Referring physician: No referring provider defined for this encounter. HISTORICAL INFORMATION: Selected notes from the medical record: CURRENT MEDICATIONS: No current outpatient medications on file. (Ophthalmic Drugs) No current facility-administered medications for this visit. (Ophthalmic Drugs) Current Outpatient Medications (Other) Medication Sig acetaminophen (Tylenol) 500 MG tablet 2 tab(s) orally every 6 hours, As Needed ALPRAZolam (Xanax) 0.5 MG tablet 1 tab(s) orally 3-4 times a day, As Needed amLODIPine (Norvasc) 5 MG tablet TAKE 1 TABLET BY MOUTH EVERY DAY FOR BLOOD PRESSURE aspirin 81 MG EC tablet hydroCHLOROthiazide (HYDRODiuril) 25 MG tablet TAKE ONE HALF TABLET BY MOUTH EVERY MORNING metoprolol tartrate (Lopressor) 100 MG tablet TAKE 1/2 TABLET BY MOUTH TWICE DAILY TWICE A DAY ORALLY jbgcyvejfkhm-myirnabo-eqyjl acid-coenzyme q10 (Preservision AREDS 2) capsule Take 1 capsule by mouth 2 (two) times a day. axruhdzemefy-kmojioyd-zfvbq acid-coenzyme q10 (Preservision AREDS 2) capsule Take 1 capsule by mouth 1 (one) time each day. omega-3 (Fish Oil) 1000 MG capsule 1 cap(s) orally once a day pantoprazole (ProtoNix) 40 MG EC tablet TAKE 1 TABLET BY MOUTH EVERY DAY IN THE MORNING FOR STOMACH potassium chloride CR (Klor-Con M10) 10 MEQ ER tablet potassium chloride CR (Klor-Con) 10 MEQ ER tablet predniSONE (Deltasone) 5 MG tablet No current facility-administered medications for this visit. (Other) ALLERGIES No Known Allergies PAST MEDICAL HISTORY Past Medical History: Diagnosis Date Cancer (CMS/HCC) January 2015 Cataract Mar 2023 Disorder of the skin and subcutaneous tissue, unspecified Skin lesion Essential (primary) hypertension Hypertension Gastro-esophageal reflux disease without esophagitis Acid reflux History of transfusion June 2018 Localized swelling, mass and lump, neck Mass of right side of neck Macular degeneration 2011 Personal history of irradiation History of radiation therapy Personal history of malignant melanoma of skin History of malignant melanoma Personal history of other diseases of the circulatory system History of hypertension Personal history of other diseases of the digestive system History of esophageal reflux Retinal telangiectasia of right eye 2009 Past Surgical History: Procedure Laterality Date CATARACT EXTRACTION Right 08/15/2023 CATARACT EXTRACTION Left 08/28/2023 CHOLECYSTECTOMY N/A Cholecystectomy from [facility] CHOLECYSTECTOMY N/A Cholecystectomy from [facility] HERNIA REPAIR N/A Inguinal Hernia Repair from [facility] INGUINAL HERNIA REPAIR N/A Repair of bilateral inguinal hernias from [facility] OTHER SURGICAL HISTORY N/A Dissection of neck from [facility] OTHER SURGICAL HISTORY N/A Parotidectomy from [facility] RADICAL NECK DISSECTION N/A Radical Neck Dissection from [facility] SALIVARY GLAND SURGERY N/A Surgery Excision Of Parotid Tumor/Gland from [facility] TONSILLECTOMY N/A Tonsillectomy from [facility] TONSILLECTOMY N/A Tonsillectomy from [facility] VASECTOMY N/A Vasectomy from [facility] FAMILY HISTORY Family History Problem Relation Name Age of Onset Conversions - Other Other No pertinent family history SOCIAL HISTORY Social History Tobacco Use Smoking status: Former Current packs/day: 0.00 Average packs/day: 1 pack/day for 20.0 years (20.0 ttl pk-yrs) Types: Cigarettes Start date: 03/13/1959 Quit date: 03/13/1979 Years since quittin.3 Passive exposure: Past Smokeless tobacco: Never Vaping Use Vaping status: Never Used GENERAL EXAM: General Exam: Neuro: Alert and Oriented x 3, normal mood and affect OPHTHALMIC EXAM: Base Eye Exam Visual Acuity (Snellen - Linear) Right Left Dist cc 20/40 -1 20/20 -3 Dist ph cc NI Correction: Glasses Tonometry (Tonopen, 9:30 AM) Right Left Pressure 12 13 Pupils Shape React APD Right Round Minimal None Left Round Minimal None Neuro/Psych Oriented x3: Yes Mood/Affect: Normal Dilation Both eyes: 1% Tropicamide, 2.5% Phenylephrine @ 9:31 AM Slit Lamp and Fundus Exam External Exam Right Left External Normal Normal Slit Lamp Exam Right Left Lids/Lashes RUL dermatochalasis, RLL entropion dermTOCHALAsis Conjunctiva/Sclera Normal Normal Cornea Clear and compact Clear and compact Anterior Chamber Deep and quiet Deep and quiet Iris Normal pupil size and shape Normal pupil size and shape Lens pc iol stable pc iol stable Anterior Vitreous Normal Normal Fundus Exam Right Left Disc No edema; no vascularization; good color (Rusty 78 d Lens) No edema; no vascularization; good color (Rusty 78 d Lens) C/D Ratio 0.35 0.35 Macula focal RPE atrophic scar blunted foveal reflex Vessels Perfused; no tortuosity or abnormality Perfused; no tortuosity or abnormality Periphery Attached; no retinal or choroidal lesions Attached; no retinal or choroidal lesions IMAGING AND PROCEDURES OCT, Retina - OU - Both Eyes Right Eye Quality was good. Progression has been stable. Left Eye Quality was good. Progression has been stable. Notes Right eye (OD) no subretinal fluid (SRF), atrophy Left eye (OS) no subretinal fluid (SRF), stable PED VISIT DIAGNOSES 1. 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 Intermediate stage nonexudative age-related macular degeneration of left eye 3. Retinal telangiectasia of both eyes 4. 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 Sánchez N/A Explained the diagnoses, plan, and follow up with the patient and they expressed understanding. Patient expressed understanding of the importance of proper follow up care. Follow up in about 6 months (around 12/28/2024) for [address] Sánchez N/A. Electronically signed by: Allyssa Carrillo MD 06/28/2024 10:11 AM Tobacco Cessation Initiative: Tobacco Use: Medium Risk (06/28/2024) Patient History Smoking Tobacco Use: Former Smokeless Tobacco Use: Never Passive Exposure: Past The patient has been counseled on tobacco cessation: Not Applicable documented in this encounter Plan of Treatment Upcoming Encounters Date Type Department Care Team (Late st Contact Info) Description 09/05/2024 1:30 PM EDT Office Visit [facility] Multidisciplinary Oncology Clinic [address] [place] [address] Blossom Méndez, JV BASEBALL COACH 800 [facility] [address] [place] [address] 09/17/2024 3:00 PM EDT Office Visit [facility] [address] [place] [address] Diego Sánchez MD 110 [facility] [address] [place] [phone] 01/08/2025 9:30 AM EDT Office Visit [facility] [address] [place] [address] Allyssa Carrillo MD 110 [facility] [address] [place] [phone] documented as of this encounter Procedures Procedure [...] Result documented in this encounter Visit Diagnoses Diagnosis 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- Primary Intermediate stage nonexudative age-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 Retinal telangiectasia Entropion of right lower eyelid documented in this encounter Additional Health Concerns Assessment Noted Time A fall risk assessment has been complete d for the patient 06/28/2024 9:23 AM EDT A Body Mass Index follow-up plan has been documented for the patient 06/28/2024 10:11 AM EDT documented as of this encounter Care Teams Cardiopulmonary Technologist Chief Relationship Specialty Start Date End Date Torsten Ferro MD [address] [place] [address] #1 [address]1 [place] [address] PCP - General 07/24/20 Blossom Méndez APRN 800 [facility] [address] [place] [address] Nurse Practitioner Internal Medicine 12/16/20 documented as of this encounter
--- NOTE | 2024-08-22 | CA_ITS ---
FINAL REPORT TECHNIQUE: Multiple transverse and longitudinal images were performed of the right femoral-popliteal deep venous system with augmentation and compression maneuvers. CLINICAL HISTORY: RLE pain x 2 months mostly in calf and knee region. He is also now hurting in right heel. Unable to bear weight on right leg. RLE edema x 1.5 months. Hx of metastatic melanoma 10 years ago with possible reoccurrence seen on scans. FINDINGS: Right lower extremity duplex ultrasound demonstrates normal flow in the deep venous system. There is no abnormal echogenicity to suggest thrombus. There is normal compression and augmentation. IMPRESSION: No evidence of right DVT. Reviewed, Interpreted and Dictated by Topher Lopez MD Transcribed by Daniela Renteria Authenticated and [facility]
--- OUTSIDE RECORDS SUMMARY | 2024-08-22 16:17 | XMS_ITS | Encounter Summary ---
Author Organization Healthcare Address [address] [place] [address] Care Team Providers Care Religion Teacher Name Role Phone Torsten Ferro MD Primary Care Provider [phone] Blossom Méndez [employer] Unavailable [phone] Encounter Details Date Type Department Care Team (Latest Contact Info) Description 06/24/2024 Travel Social History Tobacco Use Types Packs/Day Years [...] Description 09/05/2024 1:30 PM EDT Office Visit [facility] Mult[facility] Oncology [facility] [address] [place] [address] Blossom Méndez, [employer] [address] [facility] [address] [place] [address] 09/17/2024 3:00 PM EDT Office Visit [facility] [address] [place] [address] Diego Sánchez MD [address] [place] [address] 01/08/2025 9:30 AM EDT Office Visit [facility] [address] [place] [address] Allyssa Carrillo MD [address] [place] [address] documented as of this encounter Visit Diagnoses Not on filedocumented in this encounter Additional Health Concerns Assessment Noted Time A fall risk assessment has been complete d for the patient 12/25/2023 10:12 AM EDT A Body Mass Index follow-up plan has been documented for the patient 12/25/2023 11:11 AM EDT documented as of this encounter Care Teams Religion Teacher Relationship Specialty Start Date End Date Torsten Ferro MD [address] [place] [address] [address] [place] [address] PCP - General 07/24/20 Blossom Méndez APRN [address] [facility] [address] [place] [id number] Nurse Practitioner Internal Medicine 12/16/20 documented as of this encounter
--- OUTSIDE RECORDS SUMMARY | 2024-08-22 16:18 | XMS_ITS | Clinical Summary ---
Author Organization [facility] Address [address] [place] [address] Care Team Providers Care Asset Protection Lead Name Role Phone Torsten Ferro MD Primary Care Provider [phone] Blossom éMndez JEWEL BEARING BROACHER Unavailable [phone] Allergies No known active allergies Medications acetaminophen (Tylenol) 500 MG tablet 2 tab(s) orally every 6 hours, As Needed Active ALPRAZolam (Xanax) 0.5 MG tablet 1 tab(s) orally 3-4 times a day, As Needed Active amLODIPine (Norvasc) 5 MG tablet TAKE 1 TABLET BY MOUTH EVERY DAY FOR BLOOD PRESSURE 09/08/2020 Active aspirin 81 MG EC tablet Active hydroCHLOROthia zide (HYDRODiuril) 25 MG tablet TAKE ONE HALF TABLET BY MOUTH EVERY MORNING 08/17/2020 Active metoprolol tartrate (Lopressor) 100 MG tablet TAKE 1/2 TABLET BY MOUTH TWICE DAILY TWICE A DAY ORALLY 09/08/2020 Active omega-3 (Fish Oil) 1000 MG capsule 1 cap(s) orally once a day Active pantoprazole (ProtoNix) 40 MG EC tablet TAKE 1 TABLET BY MOUTH EVERY DAY IN THE MORNING FOR STOMACH 09/08/2020 Active potassium chloride CR (Klor-Con) 10 MEQ ER tablet Active multivitamin-mi nerals-folic acid-coenzyme q10 (Preservision AREDS 2) capsule Take 1 capsule by mouth 2 (two) times a day. Active multivitamin-mi nerals-folic acid-coenzyme q10 (Preservision AREDS 2) capsule Take 1 capsule by mouth 1 (one) time each day. 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 nonexudative age-re lated macular degeneration of right eye with subfoveal involvement 03/17/2023 Age-related nuclear cataract of both eyes 2023 Dysphonia 04/04/2016 Hoarseness 04/01/2016 Overview (04/07/2023): Dysphonia Malignant melanoma 03/31/2015 Overview (04/07/2023): Malignant melanoma of skin, unspecified Cervical lymphadenopathy 01/21/2015 Overview (04/07/2023): Cervical lymphadenopathy Encounters Date Type Department Care Team Description 06/28/2024 9:30 AM EDT Office Visit [facility] [address] [place] [address] Allyssa Carrillo MD 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 (Primary Dx); Intermediate stage nonexudative age-related macular degeneration of left eye; Retinal telangiectasia of both eyes; Entropion of right lower eyelid 06/28/2024 8:10 AM EDT Ancillary Procedure [facility] [address] [place] [address] 06/28/2024 Travel 06/24/2024 Travel from Last 3 Months Family History Medical History Relation Name Comments Conversions - Other Other No perti nent family history Relation Name Status Comments Other Social History Tobacco Use Types Packs/Day Years Used Date Smoking Tobacco: Former Cigarettes 1 20 0 03/13/1959 - 03/13/1979 Passive Smoke Exposure: Past Smokeless Tobacco: Never Tobacco Cessation:Counseling Given: Not Answered PHQ-2 Answer Date Recorded Patient Health Questionnaire-2 Score 0 08/02/2021 Sex and Gender Information Value Date Recorded Sex Assigned at Not on file Legal Sex Male 7:35 PM EDT Gender Identity Not on file Sexual Orientation Not on file Last Filed Vital Signs Vital Sign Reading Time Taken Comments Blood Pressure 133/73 08/24/2023 2:45 PM EDT Pulse 71 08/24/2023 2:45 PM EDT Temperature 36.4 C (97.5 F) 08/24/2023 2:45 PM EDT Respiratory Rate 18 08/04/2022 2:14 PM EDT Oxygen Saturation 96% 08/24/2023 2:45 PM EDT Inhaled Oxygen Concentration - - Weight 95.1 kg (209 lb 10.5 oz) 08/24/2023 2:45 PM EDT Height 172.7 cm (5' 8 ) 08/24/2023 2:45 PM EDT Body Mass Index 31.88 08/24/2023 2:45 PM EDT Plan of Treatment Upcoming Encounters Date Type Department Care Team (Late st Contact Info) Description 09/05/2024 1:30 PM EDT Office Visit [facility] Mult[facility] Oncology [facility] [address] [place] [address] Blossom Méndez, JEWEL BEARING BROACHER [address] [facility] [address] [place] [address] 09/17/2024 3:00 PM EDT Office Visit [facility] [address] [place] [address] Diego Sánchez MD [address] [facility] [address] [place] [address] 01/08/2025 9:30 AM EDT Office Visit [facility] [address] [place] [address] Allyssa Carrillo MD [address] [address] Health Maintenance Due Date Last Done Comments [facility]-Medicare Annual Wellness (AWV) 1945 [facility]-Infant/Child/Adol SDOH Screenings 1945 [facility]- SDOH Screenings 07/19/1961 [facility]-Adult SDOH Screenings 07/19/1961 [facility]-DTaP,Tdap,and Td Vaccines (1 - Tdap) 07/19/1962 [facility]-Hepatitis A Vaccines (1 of 2 - Risk 2-dose series) 07/19/1962 [facility]-Pneumococcal Vaccine: 50+ Years (1 of 2 - PCV) 07/19/1962 [facility]-Zoster Vaccines (1 of 2) 07/19/1962 [facility]-RSV Vaccine: 60+ Years or (1 - 1-dose 75+ series) 07/19/2018 [facility]-Depression Screening 08/02/2022 08/02/2021, 10/11 [id number] Vaccine (8 - Moderna risk 2023- season) 2024 11/28/2023, 01/09/2023, 12/02/2021, Additional history exists [facility]-Influenza Vaccine Completed 11/28/2023, 023 [facility]-Obesity Intervention Completed 025, 12/25/2023, 09/06/2023, Additional history exists HPV Vaccines Aged Out No longer eligi ble based on patient's age to complete this topic [facility]-HIB Vaccines Aged Out No longer e ligible based on patient's age to complete this topic [facility]-IPV Vaccines Aged Out No longer e ligible based on patient's age to complete this topic [facility]-Rotavirus Vaccines Aged Out No lo nger eligible based on patient's age to complete this topic Procedures Procedure Name Priority Date/Time Associated Diagnosis Comments OCT, RETINA - OU - BOTH EYES Routine 06/28/2024 9:50 AM EDT 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
--- OUTSIDE RECORDS SUMMARY | 2024-08-22 16:18 | XMS_ITS | Encounter Summary ---
Author Organization [facility] Address [address] [place] [address] Care Team Providers Care Personal Carer Name Role Phone Torsten Ferro MD Primary Care Provider [phone] Blossom Méndez ORDNANCE MECHANIC Unavailable [phone] Encounter Details Date Type Department Care Team (Latest Contact Info) Description 06/28/2024 Travel Social History Tobacco Use Types Packs/Day [...] Description 09/05/2024 1:30 PM EDT Office Visit [facility] Multidisciplinary Oncology Clinic [address] [place] [address] Blossom Méndez, ORDNANCE MECHANIC 800 [facility] [address] [place] [address] 09/17/2024 3:00 PM EDT Office Visit [facility] [address] [place] [address] Diego Sánchez MD [address] [place] [address] 01/08/2025 9:30 AM EDT Office Visit [facility] [address] [place] [address] Allyssa Carrillo MD [address] [place] [address] documented as of this encounter Visit Diagnoses Not on filedocumented in this encounter Additional Health Concerns Assessment Noted Time A fall risk assessment has been complete d for the patient 06/28/2024 9:23 AM EDT A Body Mass Index follow-up plan has been documented for the patient 06/28/2024 10:11 AM EDT documented as of this encounter Care Teams Personal Carer Relationship Specialty Start Date End Date Torsten Ferro MD [address] [place] [address] #1 #1 [place] [address] PCP - General 07/24/20 Blossom Méndez APRN [address] [facility] [address] [place] [id number] Nurse Practitioner Internal Medicine 12/16/20 documented as of this encounter
== END 2024-08-22 23:59 | disposition home or self-care (01) ==
PROVIDERS: PCP Nurse Practitioner; Visit Provider Nurse Practitioner
DX: M79.604 Pain in right leg (principal); M62.838 Other muscle spasm; R60.0 Localized edema; Z85.820 Personal history of malignant melanoma of skin
CPT/HCPCS: 93971

== ENCOUNTER 2024-08-23 12:26 | Emergency (ER) | payer MEDICARE, BC, SELFPAY ==
--- OUTSIDE RECORDS SUMMARY | 2024-06-28 08:10 | XMS_ITS | Encounter Summary ---
Author Organization Healthcare Address [address] [place] [address] Care Team Providers Care Wallcovering Texturer Name Role Phone Torsten Ferro MD Primary Care Provider [phone] Blossom Méndez SPECIAL AGENT [employer] Unavailable [phone] Encounter Details Date Type Department Care Team (Late Contact Info) Description 06/28/2024 8:10 AM EDT Ancillary Procedure [facility] [address] [place] [phone] Social History Tobacco Use Types Packs/Day [...] Description 09/05/2024 1:30 PM EDT Office Visit [facility] Multidisciplinary Oncology Clinic [address] [place] [address] Blossom Méndez, SPECIAL AGENT [employer] 800 [facility] [address] [place] [address] 09/17/2024 3:00 PM EDT Office Visit [facility] [address] [place] [phone] Diego Sánchez MD 110 [facility] [address] [place] [phone] 01/08/2025 9:30 AM EDT Office Visit [facility] [address] [place] [phone] Allyssa Carrillo MD 110 [facility] [address] [place] [phone] documented as of this encounter Procedures Procedure [...] documented as of this encounter Care Teams Wallcovering Texturer Relationship Specialty Start Date End Date Torsten Ferro MD [address] [place] [address] #1 #1 BOB Steele [id number] PCP - General 07/24/20 Blossom Méndez APRN 800 [facility]ina [facility] [address] [place] [address] Nurse Practitioner Internal Medicine 12/16/20 documented as of this encounter
--- OUTSIDE RECORDS SUMMARY | 2024-06-28 09:30 | XMS_ITS | Encounter Summary ---
Author Organization [facility] Address [address] [place] [address] Care Team Providers Care Customs Compliance Analyst Name Role Phone Torsten Ferro MD Primary Care Provider [phone] Blossom Méndez FOOD MANAGEMENT AIDE Unavailable [phone] Reason for Visit * Reason Comments Follow-up Encounter Details Date Type Department Care Team (Latest Contact Info) Description 06/28/2024 9:30 AM EDT Office Visit [facility] [address] [place] [address] Allyssa Carrillo MD [address] [address] Advanced nonexudative age-related macular degeneration [...] by Gomez Martínez on 06/28/2024 9:16 AM. Negative except for [...] MOUTH TWICE DAILY TWICE A DAY ORALLY eickgnnuovcq-aysktroz-baibr acid-coenzyme q10 (Preservision AREDS 2) capsule Take 1 capsule by mouth 2 (two) times a day. krpwmgzssxhn-quuguseq-eikpi acid-coenzyme q10 (Preservision AREDS 2) capsule Take [...] EXTRACTION Left 08/28/2023 CHOLECYSTECTOMY N/A Cholecystectomy from [facility] CHOLECYSTECTOMY N/A Cholecystectomy from [facility] HERNIA REPAIR N/A Inguinal Hernia Repair from [facility] INGUINAL HERNIA REPAIR N/A Repair of bilateral inguinal hernias from [facility] OTHER SURGICAL HISTORY N/A Dissection of neck from [facility] OTHER SURGICAL HISTORY N/A Parotidectomy from [facility] RADICAL NECK DISSECTION N/A Radical Neck Dissection from [facility] SALIVARY GLAND SURGERY N/A Surgery Excision Of Parotid Tumor/Gland from [facility] TONSILLECTOMY N/A Tonsillectomy from [facility] TONSILLECTOMY N/A Tonsillectomy from [facility] VASECTOMY N/A Vasectomy from [facility] FAMILY HISTORY Family History Problem Relation [...] Description 09/05/2024 1:30 PM EDT Office Visit [facility] Multidisciplinary Oncology Clinic [address] [place] [address] Blossom Méndez, FOOD MANAGEMENT AIDE 800 [facility] [address] [place] [address] 09/17/2024 3:00 PM EDT Office Visit [facility] [address] [place] [address] Diego Sánchez MD 110 [facility] [address] [place] [phone] 01/08/2025 9:30 AM EDT Office Visit [facility] [address] [place] [address] Allyssa Carrillo MD 110 [facility] [address] [place] [phone] documented as of this encounter Procedures Procedure [...] documented as of this encounter Care Teams Customs Compliance Analyst Relationship Specialty Start Date End Date Torsten Ferro MD [address] [place] [address] #1 #1 [place] [address] PCP - General 07/24/20 Blossom Méndez APRN 800 [facility] [address] [place] [address] Nurse Practitioner Internal Medicine 12/16/20 documented as of this encounter
[2024-08-23 12:36] VITALS: BP 166/84; PULSE 72; RESP 18; TEMP 36.5; O2SAT 96; BMI 29.2
--- NOTE | 2024-08-23 12:40 | HMH.EDGENADL ---
Discharge Plan Disposition Patient Disposition: Home, Self-Care Condition: Good Prescriptions Prescriptions: New methocarbamol 750 mg tablet 750 mg PO Q6H PRN (Reason: muscle spasm) Qty: 20 0RF ondansetron 4 mg tablet,disintegrating 4 mg PO QID PRN (Reason: nausea and vomiting) Qty: 10 0RF No Action potassium chloride [Klor-Con 10] 10 MEQ tablet extended release 10 meq PO BID amlodipine 5 MG tablet 5 mg PO DAILY alprazolam 0.5 MG tablet 0.5 mg PO QIDP PRN (Reason: Anxiety) metoprolol tartrate 50 MG tablet 50 mg PO BID cholecalciferol (vitamin D3) [Vitamin D3] 1,000 UNIT capsule 2,000 unit PO DAILY hydrochlorothiazide 12.5 MG tablet 12.5 mg PO DAILY vitamins A,C,P-lgyq-cogulo [PreserVision AREDS] 1 EACH capsule 1 ea PO DAILY PRN (Reason: supplement) pantoprazole 40 mg tablet,delayed release (DR/EC) 40 mg PO DAILY Referrals Follow up/Referrals: Glenn Szymanski DO [Staff Physician, Orthopedics] - See instructions Micki Reynolds APRN [Primary Care Provider, Medical] - See instructions Activity Restrictions/Add. Instructions Additional Instructions/Restrictions: As we discussed I recommend taking 1000 mg of Tylenol alternating every 4 hours with 800 mg of Motrin for pain and swelling in your knee. I have sent in a prescription for muscle relaxer to help with your calf pain. Please do not drive within 8 hours of taking it. Please keep your scheduled appointment for your MRI next week and follow-up closely with your PCP. If you have any persistent new or worsening signs or symptoms please follow-up with your PCP however I have also given you the name of an orthopedic surgeon contact as well or you may return to the ER as needed. Clinical Impressions Clinical Impression: Acute pain of right knee, Right calf pain Instructions Patient Instructions: DI for Diarrhea and Traveler's Diarrhea -- Adult, DI for Diarrhea and Traveler's Diarrhea -- Child, DI for Nausea -- Adult, DI for Nausea -- Child Print Language Print Language: Welsh Discharge ED Provider: Juan Diego Guerra General Adult HPI <MINDY Arauz - Last Filed: 08/23/24 16:31> General Chief complaint: Nausea/Vomiting/Diarrhea Stated complaint: vomiting, right lower leg swelling can't walk Time Seen by Provider: 08/23/24 12:40 History of Present Illness HPI narrative: Patient presents for evaluation of right knee and calf pain along with some vomiting today. Patient has had 2 to 3 months of intermittent but persistent right calf pain. He has had an extensive workup including an ultrasound for DVT done yesterday that was negative for thrombus. He has an MRI scheduled next week to evaluate further. Patient however was walking uphill to his 's grave yesterday and he twisted his knee and it gave out . It is been very painful to bear weight. At baseline patient is very independent mows his own grass occasionally walks with a walker. 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 His melanoma has since recurred and patient has elected to not pursue any more aggressive treatment. Patient denies any fever chills hemoptysis hematochezia melena nausea diarrhea but has had vomiting today that he states is from coughing. Related Data Home Medications ?Medication ?Instructions ?Recorded ?Confirmed alprazolam 0.5 mg tablet 0.5 mg PO QIDP PRN Anxiety 06/14/18 06/20/18 amlodipine 5 mg tablet 5 mg PO DAILY blood pressure 06/14/18 06/20/18 cholecalciferol (vitamin D3) 25 2,000 unit PO DAILY Supplement 06/14/18 06/20/18 mcg (1,000 unit) capsule (Vitamin D3) hydrochlorothiazide 12.5 mg tablet 12.5 mg PO DAILY blood 06/14/18 06/20/18 pressure/fluid metoprolol tartrate 50 mg tablet 50 mg PO BID blood pressure 06/14/18 06/20/18 potassium chloride 10 mEq 10 meq PO BID Supplement 06/14/18 06/20/18 tablet,extended release (Klor-Con) vitamins A,C,Q-iset-yywvlu 4,296 1 ea PO DAILY PRN supplement 06/14/18 06/20/18 mcg-226 mg-90 mg capsule (PreserVision AREDS) pantoprazole 40 mg tablet,delayed 40 mg PO DAILY 07/23/24 07/23/24 release Previous Rx's ?Medication ?Instructions ?Recorded methocarbamol 750 mg tablet 750 mg PO Q6H PRN muscle spasm #20 08/23/24 tabs ondansetron 4 mg disintegrating 4 mg PO QID PRN nausea and 08/23/24 tablet vomiting #10 tabs Allergies Allergy/AdvReac Type Severity Reaction Status Date / Time No Known Allergies Allergy Verified 06/14/18 11:38 PFS <MINDY Arauz - Last Filed: 08/23/24 16:31> [facility] Disclaimer: The information contained in this section may have been updated after the patient was seen, as this information can be updated by other users. Social History (Updated 07/23/24 @ 18:52 by Gerber Faye MD) Smoking Status: Never smoker alcohol intake: never current occupational status: other Travel in the last 8 weeks?: None caffeine: Yes Have you lived/traveled outside US in past 30 days?: No Contact w/someone who lives/traveled outside US past 30 days?: No Exposure to someone with infectious disease in past 14 days?: No Do you have a fever (greater than 100.4 F or 38 C)?: No Have you tested positive for COVID-19?: No Exposed to someone with COVID-19 in past 14 days?: No Do you have a sore throat?: No Do you have a cough?: No Do you have any weakness?: No Do you have any diarrhea?: No Are you experiencing any unusual bleeding?: No Do you have any muscle aches/pain?: No Do you have any abdominal pain?: No Are you experiencing loss of taste or smell?: No <MINDY Arauz - Last Filed: 08/23/24 16:31> ROS Obtained: Yes Systems reviewed as appropriate & no additional complaints except as documented Physical Exam <MINDY Arauz - Last Filed: 08/23/24 16:31> General General appearance: alert and in no apparent distress Respiratory Respiratory exam: Present normal lung sounds bilaterally Cardiovascular Cardiovascular exam: Present regular rate Neurological Exam Neurological exam: Present alert and oriented X3 Medical Decision Making <MINDY Arauz - Last Filed: 08/23/24 16:31> Medical Records Medical records reviewed: Yes I reviewed the patient's medical records. Screening: Per USPSTF and CDC recommendations, given the prevalence of disease in our region, it is our hospital?s policy to screen for HIV and viral Hepatitis for all patients aged 18 and over and those with ongoing risk factors. Conrad Inquiry Pt receiving controlled substance: No Vital Signs: 08/23/24 12:36 08/23/24 13:00 08/23/24 13:30 Temperature 97.7 F Temperature Source Oral Pulse Rate 69 68 Pulse Rate [Apical] 72 Respiratory Rate 18 26 H 19 Blood Pressure 174/89 H 162/79 H Blood Pressure [Right Arm] 166/84 H Blood Pressure Mean 106 Blood Pressure Mean [Right Arm] 111 Blood Pressure Source Blood Pressure Source [Right Arm] Automatic Cuff Blood Pressure Position Blood Pressure Position [Right Arm] Sitting 02 Sat by Pulse Oximetry 96 94 L 94 L Oxygen Delivery Method Room Air Room Air 08/23/24 14:01 08/23/24 14:51 Temperature 98.8 F Temperature Source Oral Pulse Rate 64 74 Pulse Rate [Apical] Respiratory Rate 19 18 Blood Pressure 161/82 H 163/89 H Blood Pressure [Right Arm] Blood Pressure Mean 106 Blood Pressure Mean [Right Arm] Blood Pressure Source Automatic Cuff Blood Pressure Source [Right Arm] Blood Pressure Position Sitting Blood Pressure Position [Right Arm] 02 Sat by Pulse Oximetry 93 L Oxygen Delivery Method Room Air Room Air Lab Data Lab results reviewed: Yes I reviewed the patient's lab results. Lab Results 08/23/24 12:40: WBC 9.9, RBC 4.70, Hgb 14.6, Hct 43.7, MCV 93.0, MCH 31.1, MCHC 33.4, RDW 13.3, Plt Count 191, MPV 10.6 H, Neut % (Auto) 81.0 H, Lymph % (Auto) 13.2, [place] % (Auto) 4.2, Eos % (Auto) 0.9, Baso % (Auto) 0.4, Neut # (Auto) 8.0 H, Lymph # (Auto) 1.3, [place] # (Auto) 0.4, Eos # (Auto) 0.1, Baso # (Auto) 0.0, ESR 16, D-Dimer 0.43, Sodium 140, Potassium 3.6, Chloride 101, Carbon Dioxide 29, Anion Gap 13.6, BUN 16, Creatinine 1.20, Estimated Creat Clear 63, Estimated GFR 58 L, Est GFR ( Amer) 70, Glucose 123 H, Calcium 10.0, Phosphorus 3.9, Magnesium 2.0, Total Bilirubin 1.0, AST 76 H, ALT 77, Alkaline Phosphatase 87, Total Creatine Kinase 229 H, Myoglobin 149 H, C-Reactive Protein 2.6, Total Protein 8.6 H, Albumin 4.9, Globulin 3.7 H, Albumin/Globulin Ratio 1.3, TSH 2.64, Free T4 Index 2.3 L, Thyroxine (T4) 7.5, T3 Uptake 30, HCV Ab MELLISSA w/Rflx PCR Qn Negative, HIV Ag/Ab Combo Qual Negative 08/23/24 13:30: Lactate 1.8 08/23/24 12:40 08/23/24 12:40 Orders (Tests/Meds): ED MEDICATIONS Discontinued Medications Generic Name Dose Route Start Last Admin Trade Name Jemalq PRN Reason Stop Dose Admin Acetaminophen 1,000 mg 08/23/24 13:03 08/23/24 13:09 Acetaminophen 500mg Tab PO 08/23/24 13:04 1,000 mg ONCE ONE Administration Dexamethasone Sodium Phosphate 10 mg 08/23/24 13:03 08/23/24 13:09 Dexamethasone 4mg/Ml 5ml Mdv IV 08/23/24 13:04 10 mg ONCE ONE Administration Ketorolac Tromethamine 15 mg 08/23/24 13:03 08/23/24 13:09 Ketorolac 30mg/Ml Vial IV 08/23/24 13:04 15 mg ONCE ONE Administration Methocarbamol 500 mg 08/23/24 13:03 08/23/24 13:09 Methocarbamol 500mg Tablet PO 08/23/24 13:04 500 mg ONCE ONE Administration ORDERS Category Date Time Status Ankle XR -Right minimum 3 Views [XR ankle RT min 3V] Exams 08/23/24 13:03 Completed Stat Knee XR right 3 views [XR knee RT 3V] Stat Exams 08/23/24 13:03 Completed POCUS Point of Care (ER Only) Stat Exams 08/23/24 13:06 Completed Tibia/fibula XR right 2 views [XR tibia fibula RT 2V] Exams 08/23/24 13:03 Completed Stat CBC w/Auto Diff [Complete Blood Count Auto Diff] Stat Lab 08/23/24 12:40 Completed CK [Creatine Kinase] Stat Lab 08/23/24 12:40 Completed CMP [Comprehensive Metabolic Panel] Stat Lab 08/23/24 12:40 Completed CRP [C-Reactive Protein] Stat Lab 08/23/24 12:40 Completed D-Dimer Stat Lab 08/23/24 12:40 Completed ESR [Erythrocyte Sedimentation Rate] Stat Lab 08/23/24 12:40 Completed HIV Combo Stat Lab 08/23/24 12:40 Completed Hepatitis C Ab Qual. W/ RFX Stat Lab 08/23/24 12:40 Completed Lactic Acid Stat Lab 08/23/24 13:30 Completed Magnesium Stat Lab 08/23/24 12:40 Completed Myoglobin Stat Lab 08/23/24 12:40 Completed Phosphorous Stat Lab 08/23/24 12:40 Completed Thyroid Panel Stat Lab 08/23/24 12:40 Completed Medical Decision Narrative: In summary patient is a 79-year-old male who presents to the emergency department for evaluation of right knee and calf pain. Patient is hemodynamically stable upon arrival, afebrile. Physical exam is remarkable for tenderness to palpation about the right knee primarily posteriorly however there is no joint laxity testing, there is no erythema warmth to touch patellar ballottement or crepitus. Patient also has posterior calf tenderness on palpation but no palpable cords negative Homans' sign. He is neurovascular intact distally with good cap refill and palpable DP and PT pulses.. Differential diagnosis includes differential diagnosis includes myositis versus fracture versus joint effusion versus soft tissue injury versus metastatic malignant neoplasm etc. Initial workup will be conducted with hematologic labs plain films of the right lower extremity. Initial interventions include Zofran Toradol Tylenol Robaxin Decadron. Initial workup reviewed by me his hematologic labs are significant for slightly elevated CK of 229 and the remainder of his hematologic labs are nonactionable. My informative rotation of his imaging prior to radiology read shows no acute bony abnormality or other identifiable acute process. Please see final read for formal interpretation. Upon repeat evaluation patient did have some reduction in his symptoms after initial intervention and is actually able to bear weight in the ER but still has an antalgic gait. Given this I recommended patient utilize his walker at all times, proceed with an MRI as scheduled next week and I have given them a referral to orthopedics pending the results of his MRI or should he have persistent new or worsening signs or symptoms along with a prescription for Robaxin and Zofran. Patient verbalized understanding and agreement <Juan Diego Guerra MD - Last Filed: 08/24/24 15:58> Vital Signs: 08/23/24 12:36 08/23/24 13:00 08/23/24 13:30 Temperature 97.7 F Temperature Source Oral Pulse Rate 69 68 Pulse Rate [Apical] 72 Respiratory Rate 18 26 H 19 Blood Pressure 174/89 H 162/79 H Blood Pressure [Right Arm] 166/84 H Blood Pressure Mean 106 Blood Pressure Mean [Right Arm] 111 Blood Pressure Source Blood Pressure Source [Right Arm] Automatic Cuff Blood Pressure Position Blood Pressure Position [Right Arm] Sitting 02 Sat by Pulse Oximetry 96 94 L 94 L Oxygen Delivery Method Room Air Room Air 08/23/24 14:01 08/23/24 14:51 Temperature 98.8 F Temperature Source Oral Pulse Rate 64 74 Pulse Rate [Apical] Respiratory Rate 19 18 Blood Pressure 161/82 H 163/89 H Blood Pressure [Right Arm] Blood Pressure Mean 106 Blood Pressure Mean [Right Arm] Blood Pressure Source Automatic Cuff Blood Pressure Source [Right Arm] Blood Pressure Position Sitting Blood Pressure Position [Right Arm] 02 Sat by Pulse Oximetry 93 L Oxygen Delivery Method Room Air Room Air Lab Data Lab Results 08/23/24 12:40: WBC 9.9, RBC 4.70, Hgb 14.6, Hct 43.7, MCV 93.0, MCH 31.1, MCHC 33.4, RDW 13.3, Plt Count 191, MPV 10.6 H, Neut % (Auto) 81.0 H, Lymph % (Auto) 13.2, [place] % (Auto) 4.2, Eos % (Auto) 0.9, Baso % (Auto) 0.4, Neut # (Auto) 8.0 H, Lymph # (Auto) 1.3, [place] # (Auto) 0.4, Eos # (Auto) 0.1, Baso # (Auto) 0.0, ESR 16, D-Dimer 0.43, Sodium 140, Potassium 3.6, Chloride 101, Carbon Dioxide 29, Anion Gap 13.6, BUN 16, Creatinine 1.20, Estimated Creat Clear 63, Estimated GFR 58 L, Est GFR ( Amer) 70, Glucose 123 H, Calcium 10.0, Phosphorus 3.9, Magnesium 2.0, Total Bilirubin 1.0, AST 76 H, ALT 77, Alkaline Phosphatase 87, Total Creatine Kinase 229 H, Myoglobin 149 H, C-Reactive Protein 2.6, Total Protein 8.6 H, Albumin 4.9, Globulin 3.7 H, Albumin/Globulin Ratio 1.3, TSH 2.64, Free T4 Index 2.3 L, Thyroxine (T4) 7.5, T3 Uptake 30, HCV Ab MELLISSA w/Rflx PCR Qn Negative, HIV Ag/Ab Combo Qual Negative 08/23/24 13:30: Lactate 1.8 Orders (Tests/Meds): ED MEDICATIONS Discontinued Medications Generic Name Dose Route Start Last Admin Trade Name Abimael PRN Reason Stop Dose Admin Acetaminophen 1,000 mg 08/23/24 13:03 08/23/24 13:09 Acetaminophen 500mg Tab PO 08/23/24 13:04 1,000 mg ONCE ONE Administration Dexamethasone Sodium Phosphate 10 mg 08/23/24 13:03 08/23/24 13:09 Dexamethasone 4mg/Ml 5ml Mdv IV 08/23/24 13:04 10 mg ONCE ONE Administration Ketorolac Tromethamine 15 mg 08/23/24 13:03 08/23/24 13:09 Ketorolac 30mg/Ml Vial IV 08/23/24 13:04 15 mg ONCE ONE Administration Methocarbamol 500 mg 08/23/24 13:03 08/23/24 13:09 Methocarbamol 500mg Tablet PO 08/23/24 13:04 500 mg ONCE ONE Administration ORDERS Category Date Time Status Ankle XR -Right minimum 3 Views [XR ankle RT min 3V] Exams 08/23/24 13:03 Completed Stat Knee XR right 3 views [XR knee RT 3V] Stat Exams 08/23/24 13:03 Completed POCUS Point of Care (ER Only) Stat Exams 08/23/24 13:06 Completed Tibia/fibula XR right 2 views [XR tibia fibula RT 2V] Exams 08/23/24 13:03 Completed Stat CBC w/Auto Diff [Complete Blood Count Auto Diff] Stat Lab 08/23/24 12:40 Completed CK [Creatine Kinase] Stat Lab 08/23/24 12:40 Completed CMP [Comprehensive Metabolic Panel] Stat Lab 08/23/24 12:40 Completed CRP [C-Reactive Protein] Stat Lab 08/23/24 12:40 Completed D-Dimer Stat Lab 08/23/24 12:40 Completed ESR [Erythrocyte Sedimentation Rate] Stat Lab 08/23/24 12:40 Completed HIV Combo Stat Lab 08/23/24 12:40 Completed Hepatitis C Ab Qual. W/ RFX Stat Lab 08/23/24 12:40 Completed Lactic Acid Stat Lab 08/23/24 13:30 Completed Magnesium Stat Lab 08/23/24 12:40 Completed Myoglobin Stat Lab 08/23/24 12:40 Completed Phosphorous Stat Lab 08/23/24 12:40 Completed Thyroid Panel Stat Lab 08/23/24 12:40 Completed Medical Decision Narrative: In summary patient is a 79-year-old male who presents to the emergency department for evaluation of right knee and calf pain. Patient is hemodynamically stable upon arrival, afebrile. Physical exam is remarkable for tenderness to palpation about the right knee primarily posteriorly however there is no joint laxity testing, there is no erythema warmth to touch patellar ballottement or crepitus. Patient also has posterior calf tenderness on palpation but no palpable cords negative Homans' sign. He is neurovascular intact distally with good cap refill and palpable DP and PT pulses.. Differential diagnosis includes differential diagnosis includes myositis versus fracture versus joint effusion versus soft tissue injury versus metastatic malignant neoplasm etc. Initial workup will be conducted with hematologic labs plain films of the right lower extremity. Initial interventions include Zofran Toradol Tylenol Robaxin Decadron. Initial workup reviewed by me his hematologic labs are significant for slightly elevated CK of 229 and the remainder of his hematologic labs are nonactionable. My informative rotation of his imaging prior to radiology read shows no acute bony abnormality or other identifiable acute process. Please see final read for formal interpretation. Upon repeat evaluation patient did have some reduction in his symptoms after initial intervention and is actually able to bear weight in the ER but still has an antalgic gait. Given this I recommended patient utilize his walker at all times, proceed with an MRI as scheduled next week and I have given them a referral to orthopedics pending the results of his MRI or should he have persistent new or worsening signs or symptoms along with a prescription for Robaxin and Zofran. Patient verbalized understanding and agreement I was consulted by the LIUS MANUEL, and we discussed the complexity of the problems being addressed. I approved the treatment and management plan for this patient's care in the Emergency Department, thus performing a substantive portion of the medical decision making. Juan Diego Guerra MD Critical Care <MINDY Arauz - Last Filed: 08/23/24 16:31> Critical Care Time Critical Care Time: No
--- OUTSIDE RECORDS SUMMARY | 2024-08-23 12:42 | XMS_ITS | Clinical Summary ---
Author Organization [facility] Address [address] 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 Mult[facility] On[facility] [address] [place] [address] Blossom Méndez, MANAGER CREDIT 800 [facility] [address] [place] [address] 09/17/2024 3:00 PM EDT Office Visit [facility] [address] [place] [address] Diego Sánchez MD 110 [facility] [address] [place] [address] 01/08/2025 9:30 AM EDT Office Visit [facility] [address] [place] [address] Allyssa Carrillo MD [address] [address] Health Maintenance Due Date Last [...] series) 07/19/2018 UKY-Depression Screening 08/02/2022 08/02/2021, 10/11 [id number] Vaccine (8 - Moderna risk 2023- season) [...] Result from Last 3 Months Insurance MEDICARE [facility] Care Teams Sterile Processing Tech Relationship Specialty Start Date End Date Torsten Ferro MD [address] [place] [address] #1 [address]1 BOB Steele [id number] PCP - General 07/24/20 Blossom Méndez APRN [address] [place] [address] [facility] [address] [place] [phone] Nurse Practitioner Internal Medicine 12/16/20
--- OUTSIDE RECORDS SUMMARY | 2024-08-23 12:42 | XMS_ITS | Encounter Summary ---
Author Organization Healthcare Address [address] [place] [address] Care Team Providers Care Alterations Sewer Name Role Phone Torsten Ferro MD Primary Care Provider [phone] Blossom Méndez SOFTWARE SECURITY ARCHITECT Unavailable [phone] Encounter Details Date Type Department Care [...] 1:30 PM EDT Office Visit [facility] Multidisciplinary Oncology Clinic [address] [place] [address] Blossom Méndez, SOFTWARE SECURITY ARCHITECT [address] [facility] [address] [place] [address] 09/17/2024 3:00 PM EDT Office Visit [facility] [address] [place] [address] Diego Sánchez MD [address] [place] [address] 01/08/2025 9:30 AM EDT Office Visit [facility] [address] [place] [address] Allyssa Carrillo MD [address] [place] [address] documented as of this encounter Visit Diagnoses Not on filedocumented in this encounter Additional Health Concerns Assessment Noted Time A fall risk assessment has been complete d for the patient 06/28/2024 9:23 AM EDT A Body Mass Index follow-up plan has been documented for the patient 06/28/2024 10:11 AM EDT documented as of this encounter Care Teams Alterations Sewer Relationship Specialty Start Date End Date Torsten Ferro MD [address] [place] [address] [address]1 [address] [place] [address] PCP - General 07/24/20 Blossom Méndez APRN 800 [facility] [address] [place] [id number] Nurse Practitioner Internal Medicine 12/16/20 documented as of this encounter
--- OUTSIDE RECORDS SUMMARY | 2024-08-23 12:42 | XMS_ITS | Encounter Summary ---
Author Organization Healthcare Address [address] [place] [address] Care Team Providers Care Office Helper Name Role Phone Torsten Ferro MD Primary Care Provider [phone] Blossom Méndez WEB ADMINISTRATOR Unavailable [phone] Encounter Details Date Type Department Care [...] Description 09/05/2024 1:30 PM EDT Office Visit [facility] Multidisciplinary Oncology Clinic [address] [place] [address] Blossom Méndez, WEB ADMINISTRATOR 800 [facility] [address] [place] [address] 09/17/2024 3:00 PM EDT Office Visit [facility] [address] [place] [address] Diego Sánchez MD [address] [place] [address] 01/08/2025 9:30 AM EDT Office Visit [facility] [address] [place] [address] Allyssa Carrillo MD [address] [place] [address] documented as of this encounter Visit Diagnoses Not on filedocumented in this encounter Additional Health Concerns Assessment Noted Time A fall risk assessment has been complete d for the patient 12/25/2023 10:12 AM EDT A Body Mass Index follow-up plan has been documented for the patient 12/25/2023 11:11 AM EDT documented as of this encounter Care Teams Office Helper Relationship Specialty Start Date End Date Torsten Ferro MD [address] [place] [address] [address] [place] [address] PCP - General 07/24/20 Blossom Méndez APRN 800 [facility] [address] [place] [id number] Nurse Practitioner Internal Medicine 12/16/20 documented as of this encounter
[2024-08-23 13:00] VITALS: BP 174/89; PULSE 69; RESP 26; O2SAT 94
--- NOTE | 2024-08-23 13:03 | XR_ITS ---
FINAL REPORT CLINICAL HISTORY: Too painful to bear weight FINDINGS: RIGHT ANKLE Three views were obtained. There is no fracture or dislocation. The joint spaces appear normal. No soft tissue abnormality is identified. The mortise is intact. Moderate plantar spur is identified. IMPRESSION: Moderate plantar spur. Reviewed, Interpreted and Dictated by Topher Lopez MD Transcribed by Daniela Renteria Authenticated and [facility]
--- NOTE | 2024-08-23 13:03 | XR_ITS ---
FINAL REPORT CLINICAL HISTORY: Too painful to bear weight FINDINGS: RIGHT TIBIAL FIBULA Two views were obtained. There is no fracture or dislocation. The joint spaces appear normal. No soft tissue abnormality is identified. IMPRESSION: No acute process. Reviewed, Interpreted and Dictated by Topher Lopez MD Transcribed by Daniela Renteria Authenticated and [facility]
--- NOTE | 2024-08-23 13:03 | XR_ITS ---
FINAL REPORT CLINICAL HISTORY: Too painful to bear weight FINDINGS: RIGHT KNEE Three views were obtained. There is no fracture or dislocation. There is a minimal osteophyte along the superior margin of the patella. The joint spaces appear normal. No soft tissue abnormality is identified. IMPRESSION: No acute process. Reviewed, Interpreted and Dictated by Topher Lopez MD Transcribed by Daniela Renteria Authenticated and [facility]
[2024-08-23] MEDS: ACETAMINOPHEN 500MG TAB 1000 MG PO (13:09)
[2024-08-23] MEDS: DEXAMETHASONE 4MG/ML 5ML MDV 10 MG IV (13:09)
[2024-08-23] MEDS: KETOROLAC 30MG/ML VIAL 15 MG IV (13:09)
[2024-08-23] MEDS: METHOCARBAMOL 500MG TABLET 500 MG PO (13:09)
[2024-08-23 13:19] LABS: Basophils % 0.4 % (0.1-2.0); Eosinophils # 0.1 Kmm3 (0.0-0.4); Eosinophils % 0.9 % (0.1-12.0); Hematocrit 43.7 % (42.0-52.0); Hemoglobin 14.6 g/dL (14.1-18.0); Immature Granulocytes # 0.03 10^3uL; Immature Granulocytes % 0.3 %; Lymphocytes # 1.3 K/mm3 (0.7-4.5); Lymphocytes % 13.2 % (10-50); Mean Corpuscular HGB Conc 33.4 g/dL (31.8-35.4); Mean Corpuscular Hemoglobin 31.1 pg (27.0-31.2); Mean Platelet Volume 10.6 fl (7.4-10.4); Monocytes # 0.4 K/mm3 (0.1-1.0); Monocytes % 4.2 % (1.7-9.3); Nucleated Red Blood Cells # 0 10^3/uL; Nucleated Red Blood Cells % 0 %; Platelet Count 191 K/mm3 (142-424); Red Cell Distribution Width 13.3 % (11.5-17.5); Red Cell Distribution Width-SD 45.9 fL; White Blood Count 9.9 K/mm3 (4.8-10.8)
[2024-08-23 13:22] LABS: Alanine Aminotransferase 77 U/L (12-78); Albumin Level 4.9 g/dl (3.5-5.0); Albumin/Globulin Ratio 1.3 (1.1-1.8); Alkaline Phosphatase 87 U/L (38-126); Anion Gap 13.6 mEq/L (5-15); Aspartate Amino Transferase 76 U/L (17-59); Blood Urea Nitrogen 16 mg/dl (9-20); Carbon Dioxide 29 mmol/L (22.0-30.0); Chloride 101 mmol/L (98-107); Creatine Kinase 229 U/L (55-170); Creatinine Clearance Estimated 63 mL/min (50-200); Estimated Glomerular Filt Rate 58 ml/min (>60); GFR (African American) 70 ML/MIN (>60); Globulin 3.7 g/dL (1.3-3.2); Glucose 123 mg/dl (74-100); Potassium 3.6 mmoL/L (3.5-5.1); Sodium 140 mmol/L (136-145); Total Protein,Serum 8.6 g/dl (6.3-8.2)
[2024-08-23 13:23] LABS: Phosphorous 3.9 mg/dl (2.5-4.5)
[2024-08-23 13:28] LABS: D-Dimer 0.43 ug/mL (0.0-0.5)
[2024-08-23 13:29] LABS: C-Reactive Protein 2.6 mg/L (0-4)
[2024-08-23 13:30] VITALS: BP 162/79; PULSE 68; RESP 19; O2SAT 94
[2024-08-23 13:41] LABS: Erythrocyte Sedimentation Rate 16 mm/hr (0-20)
[2024-08-23 13:49] LABS: Lactic Acid 1.8 mmol/L (0.7-2.1)
[2024-08-23 13:51] LABS: HIV Combo NEGATIVE (Negative)
[2024-08-23 13:58] LABS: Hepatitis C Ab Qual. W/ RFX NEGATIVE (Negative)
[2024-08-23 14:01] VITALS: BP 161/82; PULSE 64; RESP 19; O2SAT 93
[2024-08-23 14:12] LABS: Free Thyroxine Index 2.3 ug/dL (5.93-13.13); T4 (Thyroxine) 7.5 ug/dl (5.53-11.0); Triiodothryronine (T3) Uptake 30 % (23.5-40.5)
[2024-08-23 14:26] LABS: Thyroid Stimulating Hormone 2.64 uIU/mL (0.465-4.68)
[2024-08-23 14:51] VITALS: BP 163/89; PULSE 74; RESP 18; TEMP 37.1; O2SAT 97
[2024-08-24 08:21] LABS: Myoglobin 149 ng/mL (28-72)
== END 2024-08-23 14:56 | disposition home or self-care (01) ==
PROVIDERS: Physician Assistant; Emergency Provider Emergency Medicine; PCP Nurse Practitioner
DX: M25.561 Pain in right knee (principal); M79.642 Pain in left hand; R11.2 Nausea with vomiting, unspecified; E87.6 Hypokalemia; I20.0 Unstable angina
CPT/HCPCS: 73562; 73590; 73610; 80053; 80074; 82550; 83605; 83735; 83874; 84100; 84436; 84443; 84479; 85025; 85378; 85651; 86140; 87389; 96374; 96375; 99285; J1100; J1885